=== PATIENT | male | born 1935 | race Caucasian/White ===

== ENCOUNTER 2019-02-26 11:13 | Inpatient (IN) | payer MEDICARE, OTHER ==
[2019-02-26 12:29] LABS: ADD MAN DIFF? NO
[2019-02-26 12:33] LABS: BASOPHILS % 0.4 % (0.0-2.0); EOSINOPHILS % 0.1 % (0.0-7.0); HEMATOCRIT 44.6 % (42.0-52.0); HEMOGLOBIN 14.5 g/dl (14.0-18.0); LYMPHOCYTES # 1.2 10^3/ul (0.8-2.9); LYMPHOCYTES % 17.3 % (15.0-51.0); MEAN CORPUSCULAR HEMOGLOBIN 28.3 pg (29.0-33.0); MEAN CORPUSCULAR HGB CONC 32.5 g/dl (32.0-37.0); MEAN CORPUSCULAR VOLUME 87.1 fl (82.0-101.0); MEAN PLATELET VOLUME 9.9 fl (7.4-10.4); MONOCYTE # 0.5 10^3/ul (0.3-0.9); MONOCYTES % 7.1 % (0.0-11.0); NEUTROPHIL # 5.3 10^3/ul (1.6-7.5); NEUTROPHILS % 74.8 % (39.0-77.0); PLATELET COUNT 174 10^3/UL (140-415); RED BLOOD COUNT 5.12 10^6/ul (4.70-6.10); RED CELL DISTRIBUTION WIDTH 13.4 % (11.5-14.5)
[2019-02-26 12:33] LABS: WHITE BLOOD COUNT 7.1 10^3/ul (4.8-10.8)
[2019-02-26 12:51] LABS: ALANINE AMINOTRANSFERASE 26 IU/L (13-69); ALBUMIN 4.5 g/dl (3.3-4.9); ALBUMIN/GLOBULIN RATIO 1.09; ALKALINE PHOSPHATASE 87 IU/L (42-121); ANION GAP 8 (5-13); ASPARTATE AMINO TRANSFERASE 28 IU/L (15-46); BILIRUBIN,INDIRECT 0.6 mg/dl (0-1.1); BILIRUBIN,TOTAL 0.6 mg/dl (0.2-1.3); BLOOD UREA NITROGEN 23 mg/dl (7-20); CALCIUM 9.5 mg/dl (8.4-10.2); CARBON DIOXIDE 29 mmol/L (21-31); CHLORIDE 103 mmol/L (97-110); CREATININE 1.06 mg/dl (0.61-1.24); GLUCOSE 115 mg/dl (70-220); LIPASE 163 U/L (23-300); POTASSIUM 4.2 mmol/L (3.5-5.1); SODIUM 140 mmol/L (135-144); TOTAL PROTEIN 8.6 g/dl (6.1-8.1)
[2019-02-26 13:03] LABS: TROPONIN-I < 0.012 ng/ml (0.000-0.120)
[2019-02-26 14:04] LABS: URINE BLOOD (Dip) POC 2+ (NEGATIVE); URINE GLUCOSE (Dip) POC Negative (NEGATIVE); URINE KETONES (Dip) POC Negative (NEGATIVE); URINE LEUKOCYTE EST (Dip) POC Negative (NEGATIVE); URINE NITRITE (Dip) POC Negative (NEGATIVE); URINE TOTAL PROTEIN POC Negative (NEGATIVE)
[2019-02-26 14:04] LABS: URINE PH (Dip) POC 6.5 (5.0-8.5)
[2019-02-26] MEDS ORDERED: ONDANSETRON 4 MG INJ IV ×2 (15:30→19:30)
[2019-02-26] MEDS ORDERED: ACETAMINOPHEN 325 MG TAB PO (15:30)
[2019-02-26] MEDS ORDERED: BISACODYL (EC) 5 MG TAB PO (19:30)
[2019-02-26] MEDS ORDERED: NA PHOSPHATE/BIPHOS 133 ML ENEMA PR (19:30)
[2019-02-26] MEDS ORDERED: HYDROCODONE/APAP (5/325) TAB PO (19:30)
[2019-02-26] MEDS ORDERED: NACL 0.9% 3 ML SYG IV (19:30)
[2019-02-26] MEDS ORDERED: morphine 2 MG INJ IV (19:30)
[2019-02-26] MEDS ORDERED: MAGNESIUM HYDROXIDE 30ML CUP PO (19:30)
[2019-02-26] MEDS: [UNRECOGNIZED DRUG - OTHER] XX (20:00)
[2019-02-26] MEDS: 1/2 NS + KCL 20 MEQ 1,000 ML IV (20:03)
[2019-02-26] MEDS: (Mirabegron (Myrbetriq) 50 MG: PLEASE ASK FAMILY TO BRING IN XX (20:30)
[2019-02-26] MEDS ORDERED: [UNRECOGNIZED DRUG - OTHER] XX (20:30)
[2019-02-26] MEDS: [UNRECOGNIZED DRUG - OTHER] XX (20:30)
[2019-02-26] MEDS: DOCUSATE SODIUM 100 MG CAP PO (21:17)
[2019-02-26] MEDS: BISACODYL (EC) 5 MG TAB PO (21:17)
[2019-02-26] MEDS: ALPRAZOLAM 0.25 MG TAB PO (21:17)
[2019-02-26] MEDS: CARBIDOPA/LEVODOPA (25/100) TAB PO (21:17)
[2019-02-26] MEDS: LUBIPROSTONE 24 MCG CAP PO (21:17)
[2019-02-26] MEDS: SENNA TAB PO (21:17)
[2019-02-26] MEDS: ZOLPIDEM 5 MG TAB PO (22:39)
[2019-02-27] MEDS: [UNRECOGNIZED DRUG - OTHER] XX ×2 (04:00→12:00)
[2019-02-27] MEDS: (Mirabegron (Myrbetriq) 50 MG: PLEASE ASK FAMILY TO BRING IN XX (04:16)
[2019-02-27] MEDS: [UNRECOGNIZED DRUG - OTHER] XX ×2 (04:17→12:30)
[2019-02-27 05:05] LABS: ADD MAN DIFF? NO
[2019-02-27 05:08] LABS: WHITE BLOOD COUNT 5.5 10^3/ul (4.8-10.8)
[2019-02-27 05:08] LABS: BASOPHILS % 0.5 % (0.0-2.0); EOSINOPHILS # 0.1 10^3/ul (0.0-0.5); EOSINOPHILS % 1.8 % (0.0-7.0); HEMATOCRIT 41.5 % (42.0-52.0); HEMOGLOBIN 13.7 g/dl (14.0-18.0); LYMPHOCYTES # 1.7 10^3/ul (0.8-2.9); LYMPHOCYTES % 30.2 % (15.0-51.0); MEAN CORPUSCULAR HEMOGLOBIN 28.7 pg (29.0-33.0); MEAN CORPUSCULAR VOLUME 86.8 fl (82.0-101.0); MEAN PLATELET VOLUME 10.4 fl (7.4-10.4); MONOCYTE # 0.5 10^3/ul (0.3-0.9); MONOCYTES % 9.9 % (0.0-11.0); NEUTROPHIL # 3.1 10^3/ul (1.6-7.5); NEUTROPHILS % 57.4 % (39.0-77.0); PLATELET COUNT 172 10^3/UL (140-415); RED BLOOD COUNT 4.78 10^6/ul (4.70-6.10); RED CELL DISTRIBUTION WIDTH 13.7 % (11.5-14.5)
[2019-02-27 05:40] LABS: ANION GAP 8 (5-13); BLOOD UREA NITROGEN 19 mg/dl (7-20); CALCIUM 9.4 mg/dl (8.4-10.2); CARBON DIOXIDE 25 mmol/L (21-31); CHLORIDE 105 mmol/L (97-110); CREATININE 1.04 mg/dl (0.61-1.24); GLUCOSE 103 mg/dl (70-220); PHOSPHORUS 3.9 mg/dl (2.5-4.9); POTASSIUM 3.9 mmol/L (3.5-5.1); SODIUM 138 mmol/L (135-144)
[2019-02-27 05:41] LABS: HEMOGLOBIN A1C 5.6 % (0-5.9)
[2019-02-27] MEDS: ALPRAZOLAM 0.25 MG TAB PO ×2 (07:12→20:08)
[2019-02-27] MEDS: 1/2 NS + KCL 20 MEQ 1,000 ML IV (07:38)
[2019-02-27] MEDS: CARBIDOPA/LEVODOPA (25/100) TAB PO ×3 (08:30→20:09)
[2019-02-27] MEDS: LUBIPROSTONE 24 MCG CAP PO ×2 (08:30→20:09)
[2019-02-27] MEDS: SENNA TAB PO ×2 (08:30→20:09)
[2019-02-27] MEDS: DOCUSATE SODIUM 100 MG CAP PO ×2 (08:30→20:06)
[2019-02-27] MEDS: ESCITALOPRAM 10 MG TAB PO (08:30)
[2019-02-27] MEDS ORDERED: NON-FORMULARY/PATIENT OWN MED (Mirabegron (Myrbetriq) 50 MG) PO (09:00)
[2019-02-27] MEDS: PEG/ELECTROLYTES 4L BTL PO (11:55)
[2019-02-27] MEDS: NEUPRO TRANSDERM (15:00)
[2019-02-27] MEDS ORDERED: NUPLAZID 34MG CAPSULE PO (15:30)
[2019-02-27] MEDS: ZOLPIDEM 5 MG TAB PO (21:25)
[2019-02-27] MEDS: NUPLAZID 34 MG CAPSULE PO (21:34)
[2019-02-28] MEDS: ACETAMINOPHEN 325 MG TAB PO (06:37)
[2019-02-28] MEDS: ALPRAZOLAM 0.25 MG TAB PO ×2 (06:37→20:59)
[2019-02-28] MEDS: ESCITALOPRAM 10 MG TAB PO (08:39)
[2019-02-28] MEDS: DOCUSATE SODIUM 100 MG CAP PO ×2 (08:39→20:57)
[2019-02-28] MEDS: LUBIPROSTONE 24 MCG CAP PO ×2 (08:39→20:58)
[2019-02-28] MEDS: CARBIDOPA/LEVODOPA (25/100) TAB PO ×3 (08:39→20:59)
[2019-02-28] MEDS: SENNA TAB PO ×2 (08:39→20:58)
[2019-02-28] MEDS: NEUPRO TRANSDERM (08:55)
[2019-02-28] MEDS: LACTULOSE 30ML CUP PO ×2 (11:20→20:58)
[2019-03-01] MEDS: LACTULOSE 30ML CUP PO (06:07)
[2019-03-01] MEDS: CARBIDOPA/LEVODOPA (25/100) TAB PO ×2 (08:26→12:05)
[2019-03-01] MEDS: ESCITALOPRAM 10 MG TAB PO (08:26)
[2019-03-01] MEDS: SENNA TAB PO (08:26)
[2019-03-01] MEDS: DOCUSATE SODIUM 100 MG CAP PO (08:26)
[2019-03-01] MEDS: LUBIPROSTONE 24 MCG CAP PO (08:26)
== END 2019-03-01 13:04 | disposition home or self-care (01) | DRG 390 ==
LOC: E/R 11:13 → MS1 15:19
DX: K56.7 Ileus, unspecified (principal); G20 Parkinson's disease; F32.9 Major depressive disorder, single episode, unspecified; K59.00 Constipation, unspecified
CPT/HCPCS: 74176; 80048; 80053; 81003; 83036; 83690; 83735; 84100; 84484; 85025; 87081; 93005; 99285-25